=== PATIENT | male | born 1950 | race Caucasian/White ===

== ENCOUNTER 2021-03-10 15:02 | Outpatient (CLI) | payer MEDICARE | END 2021-03-10 15:03 | disposition home or self-care (01) | LOC: CSHMRI 15:02 | PROVIDERS: ATTEND Family Medicine | DX: G89.4 Chronic pain syndrome (principal); M54.12 Radiculopathy, cervical region; M47.812 Spondylosis without myelopathy or radiculopathy, cervical region; M50.90 Cervical disc disorder, unspecified, unspecified cervical region; M79.18 Myalgia, other site | CPT/HCPCS: 72141 ==

== ENCOUNTER 2023-03-23 10:06 | Outpatient (CLI) | payer MEDICARE | END 2023-03-23 10:07 | disposition home or self-care (01) | LOC: CSHRAD 10:06 | PROVIDERS: ATTEND Student in an Organized Health Care Education/Training Program | DX: Z01.818 Encounter for other preprocedural examination (principal) | CPT/HCPCS: 71046 ==

== ENCOUNTER 2024-09-26 09:15 | Outpatient (CLI) | payer MEDICARE | END 2024-09-26 09:16 | disposition home or self-care (01) | LOC: CSHRAD 09:15 | PROVIDERS: ATTEND Student in an Organized Health Care Education/Training Program | DX: R05.3 Chronic cough (principal) | CPT/HCPCS: 71046 ==

== ENCOUNTER 2025-07-28 09:17 | Outpatient (CLI) | payer MEDICARE | END 2025-07-28 09:18 | disposition home or self-care (01) | LOC: CSHSLEEP 09:17 | PROVIDERS: ATTEND Otolaryngology Otolaryngic Allergy | DX: G47.33 Obstructive sleep apnea (adult) (pediatric) (principal); R53.83 Other fatigue; E66.9 Obesity, unspecified; Z68.34 Body mass index [BMI] 34.0-34.9, adult | CPT/HCPCS: 95810 ==

== ENCOUNTER 2025-11-05 08:07 | Outpatient (CLI) | payer MEDICARE ==
[2025-11-05 08:54] LABS: Hematocrit 46.8 % (38.8-50.0); Hemoglobin 15.0 g/dL (13.5-17.5)
[2025-11-05 09:14] LABS: Anion Gap 16 mmol/L (10-20); BUN (Urea Nitrogen) 15 mg/dL (8.4-25.7); Calc. Creatinine Clearance 0 mL/min (70-130); Calcium 9.5 mg/dL (7.8-10.44); Carbon Dioxide 23 mmol/L (23-31); Chloride 107 mmol/L (98-107); Glucose 94 mg/dL (83-110); Potassium 4.1 mmol/L (3.5-5.1); Sodium 142 mmol/L (136-145)
== END 2025-11-05 08:08 | disposition home or self-care (01) ==
LOC: CSHLAB 08:07
PROVIDERS: ATTEND Otolaryngology Otolaryngic Allergy
DX: Z01.818 Encounter for other preprocedural examination (principal); G47.33 Obstructive sleep apnea (adult) (pediatric); R94.31 Abnormal electrocardiogram [ECG] [EKG]
CPT/HCPCS: 80048; 85014; 85018; 93005; 93010